=== PATIENT | female | born 1975 | race Asian ===

== ENCOUNTER 2024-03-05 13:05 | Inpatient (IN) ==
--- NOTE | 2024-03-05 13:15 | ED Triage Note ---
Date of Service March 05, 2024 Provider in Triage Author: Kashif Reno History of Present Illness This patient was briefly evaluated while in triage. An abbreviated physical exam was performed. This patient is a 48-year-old Female who presents to the ED for evaluation of altered mental status. We were advised by the front desk auxiliary that the patient passed out while checking in. The reports that she ate a jelly filled candy in her car 1 hour ago. Shortly thereafter, the patient started to get lightheadedness and dizziness. This happened approximately 1 hour prior to arrival. The is uncertain what she ate. The is concerned that she is having an allergic reaction. Physical Exam CONSTITUTIONAL: Healthy and well nourished. Patient does not verbally respond, but is initially alert when when she was shaken. HEENT: Normocephalic, atraumatic. Patient is licking her lips. MUSCULOSKELETAL: The patient is rocking her feet on the foot rests of her wheelchair. INTEGUMENTARY: No rash or other significant dermatologic conditions noted. HEMATOLOGIC: No ecchymosis or petechiae. Initial orders for labs and / or imaging were placed and patient was placed in the waiting area until a bed is available. Please see further documentation for the full ED course.
--- NOTE | 2024-03-05 13:39 | Emergency Department Note ---
Impression & Plan AMS (altered mental status), Marijuana use ED Provider Note NAME: ANGELITO JIMENES AGE: 48 SEX: F : 1975 ARRIVES VIA: Walk-In INFORMANT: The patient's significant other ED PROVIDER(S): Luis Paris DO CHIEF COMPLAINT: Syncope HPI: The patient is a 48-year-old female who presented to the emergency department for evaluation of syncope. The patient had multiple syncopal episodes. There is no fall. The states that she thought she may have had an allergic reaction. They were in the car together around lunchtime. There was a jellylike substance that the found in the car and thought that it was something for her to eat. Ever since that time the patient has not been acting appropriately. She states that she was able to talk earlier and stated to her significant other that she felt funny and felt off. There is no reported nausea or vomiting. Patient denies having any pain. ROS: See above HPI for pertinent positives & negatives. A total of 10 systems reviewed and were otherwise negative. PAST MEDICAL HISTORY: See Below PAST SURGICAL HISTORY: See Below FAMILY HISTORY: See Below SOCIAL HISTORY: See Below HOME MEDICATIONS: See Below ALLERGIES: See Below VITALS: See Below PHYSICAL EXAMINATION: GENERAL: The patient is keeping her eyes closed. She is not moving. She does not appear to be uncomfortable or in pain. EYES: The conjunctivae are clear. The pupils are dilated and reactive bilaterally. EARS, NOSE, MOUTH AND THROAT: The nose is without any evidence of any deformity. NECK: The neck is nontender and supple. RESPIRATORY: Normal respiratory effort is noted there is no evidence of wheezing rhonchi or rales CARDIOVASCULAR: Tachycardic and regular heart sounds were noted to auscultation. There is no definite murmur. GASTROINTESTINAL: The abdomen is soft. Abdomen is nontender. MUSCULOSKELETAL/EXTREMITIES: There is no evidence of gross deformity full range of motion is noted in the hips and shoulders. SKIN: There is no obvious evidence of any rash. There are no petechiae, pallor or cyanosis noted. NEUROLOGIC: Patellar reflexes are 2+ bilaterally. The patient does not answer verbal commands. When prompted by the water maintenance supervisor the patient does shake her head no and yes to some questions. MEDICAL DECISION MAKING: Patient is a 48-year-old female who presented to the emergency department for an evaluation of altered mental status. It does appear that the patient did eat something before the onset of the symptoms. Initially I was concerned this could be a conversion disorder versus some other pathology. The patient was placed into room a 1. I discussed the patient's laboratory and radiographic studies with her . At this time no definite pathologic disorder was noted on CT of the brain. Vital signs are reassuring. The patient did have marijuana in her urine drug screen. It is possible she unknowingly took an edible. [facility] They will evaluate the patient in the emergency department. She may require further observation as an inpatient to ensure that she continues to improve. Triage Nursing notes reviewed. Prior medical records reviewed Vital Signs: reviewed and remarkable for no significant abnormalities Differential diagnosis: Infection, hypoglycemia, electrolyte abnormalities, overdose, toxicologic, cardiac sources, intracerebral event, neurologic, trauma, as well as other pathologies. ER treatment provided: See below Diagnostics interpreted by me: ECG: EKG was obtained in the emergency department. My interpretation is sinus tachycardia at 142 bpm. There is no ectopy. There is no acute ST segment abnormalities noted. No previous tracing was available. Cardiac Monitoring: An order was placed for continuous cardiac monitoring. The monitor shows a rate of 96 bpm with sinus rhythm. Laboratory studies: As stated above and show below. Imaging studies: See below. Radiographic imaging was reviewed by myself Consultation(s): I discussed this case with La who [facility] Past Med/Surg History Medical History No significant past medical history Surgical History No significant past surgical history Social History Smoking Status: Never smoker marital status: Feels Safe at Home: Yes Allergies Allergies Allergy/AdvReac Type Severity Reaction Status Date / Time No Known Allergies Allergy Unverified 03/05/24 15:31 Home Meds Home Medications Medication Instructions Recorded Confirmed No Known Home Medications 03/05/24 03/05/24 Results & Data (ED) Vital Signs Vital Signs - 24 hr 03/05/24 13:06 03/05/24 13:26 03/05/24 13:47 Temperature 36.6 C Temperature Source Oral Pulse Rate 154 H 136 H Pulse Rate [Finger] 118 H Pulse Rate from SpO2 Sensor Respiratory Rate 18 20 Respiratory Effort / Characteristics Non-Labored Spontaneous Respiratory Depth Normal Respiratory Pattern Regular Blood Pressure 155/115 H Blood Pressure [Right Arm] 140/107 H Blood Pressure Mean 128 Blood Pressure Mean [Right Arm] 118 Blood Pressure Position Lying Pulse Oximetry 99 100 Oxygen Delivery Method Room Air Nasal Cannula Oxygen Flow Rate 2 Sepsis Recent Fever Within 48 Hours No Sepsis New/Unexplained Change in Mental Status Yes Sepsis Action Taken by Nursing No Action Required 03/05/24 14:54 03/05/24 15:10 03/05/24 15:10 Temperature Temperature Source Pulse Rate 92 H Pulse Rate [Finger] 103 H Pulse Rate from SpO2 Sensor 92 H Respiratory Rate 20 15 Respiratory Effort / Characteristics Respiratory Depth Respiratory Pattern Blood Pressure 121/89 Blood Pressure [Right Arm] 120/92 Blood Pressure Mean 103 Blood Pressure Mean [Right Arm] 101 Blood Pressure Position Pulse Oximetry 100 100 Oxygen Delivery Method Nasal Cannula Nasal Cannula Oxygen Flow Rate 2 2 Sepsis Recent Fever Within 48 Hours Sepsis New/Unexplained Change in Mental Status Sepsis Action Taken by Nursing 03/05/24 15:15 03/05/24 15:15 03/05/24 15:20 Temperature Temperature Source Pulse Rate 99 H Pulse Rate [Finger] Pulse Rate from SpO2 Sensor 98 H Respiratory Rate 13 Respiratory Effort / Characteristics Respiratory Depth Respiratory Pattern Blood Pressure 128/94 129/96 Blood Pressure [Right Arm] Blood Pressure Mean 101 111 Blood Pressure Mean [Right Arm] Blood Pressure Position Pulse Oximetry 100 Oxygen Delivery Method Oxygen Flow Rate 2 Sepsis Recent Fever Within 48 Hours Sepsis New/Unexplained Change in Mental Status Sepsis Action Taken by Nursing 03/05/24 15:20 03/05/24 15:25 03/05/24 15:30 Temperature Temperature Source Pulse Rate 100 H 98 H Pulse Rate [Finger] Pulse Rate from SpO2 Sensor 100 H 98 H Respiratory Rate 13 13 Respiratory Effort / Characteristics Respiratory Depth Respiratory Pattern Blood Pressure 118/85 Blood Pressure [Right Arm] Blood Pressure Mean 95 Blood Pressure Mean [Right Arm] Blood Pressure Position Pulse Oximetry 100 100 Oxygen Delivery Method Nasal Cannula Nasal Cannula Oxygen Flow Rate 2 2 Sepsis Recent Fever Within 48 Hours Sepsis New/Unexplained Change in Mental Status Sepsis Action Taken by Nursing 03/05/24 15:30 03/05/24 15:35 03/05/24 15:40 Temperature Temperature Source Pulse Rate 91 H 97 H 94 H Pulse Rate [Finger] Pulse Rate from SpO2 Sensor 91 H 97 H 94 H Respiratory Rate 17 12 12 Respiratory Effort / Characteristics Respiratory Depth Respiratory Pattern Blood Pressure Blood Pressure [Right Arm] Blood Pressure Mean Blood Pressure Mean [Right Arm] Blood Pressure Position Pulse Oximetry 100 100 100 Oxygen Delivery Method Nasal Cannula Nasal Cannula Nasal Cannula Oxygen Flow Rate 2 2 2 Sepsis Recent Fever Within 48 Hours Sepsis New/Unexplained Change in Mental Status Sepsis Action Taken by Nursing 03/05/24 15:45 03/05/24 15:45 03/05/24 15:50 Temperature Temperature Source Pulse Rate 89 98 H Pulse Rate [Finger] Pulse Rate from SpO2 Sensor 89 98 H Respiratory Rate 10 L 17 Respiratory Effort / Characteristics Respiratory Depth Respiratory Pattern Blood Pressure 113/80 Blood Pressure [Right Arm] Blood Pressure Mean 95 Blood Pressure Mean [Right Arm] Blood Pressure Position Pulse Oximetry 100 100 Oxygen Delivery Method Nasal Cannula Nasal Cannula Oxygen Flow Rate 2 2 Sepsis Recent Fever Within 48 Hours Sepsis New/Unexplained Change in Mental Status Sepsis Action Taken by Nursing 03/05/24 15:55 03/05/24 16:00 03/05/24 16:00 Temperature Temperature Source Pulse Rate 97 H 91 H Pulse Rate [Finger] Pulse Rate from SpO2 Sensor 97 H 91 H Respiratory Rate 16 21 Respiratory Effort / Characteristics Respiratory Depth Respiratory Pattern Blood Pressure 130/95 Blood Pressure [Right Arm] Blood Pressure Mean 105 Blood Pressure Mean [Right Arm] Blood Pressure Position Pulse Oximetry 100 100 Oxygen Delivery Method Nasal Cannula Nasal Cannula Oxygen Flow Rate 2 2 Sepsis Recent Fever Within 48 Hours Sepsis New/Unexplained Change in Mental Status Sepsis Action Taken by Nursing 03/05/24 16:15 03/05/24 16:15 Temperature Temperature Source Pulse Rate 96 H Pulse Rate [Finger] Pulse Rate from SpO2 Sensor 96 H Respiratory Rate 12 Respiratory Effort / Characteristics Respiratory Depth Respiratory Pattern Blood Pressure 131/97 Blood Pressure [Right Arm] Blood Pressure Mean 109 Blood Pressure Mean [Right Arm] Blood Pressure Position Pulse Oximetry 100 Oxygen Delivery Method Nasal Cannula Oxygen Flow Rate 2 Sepsis Recent Fever Within 48 Hours Sepsis New/Unexplained Change in Mental Status Sepsis Action Taken by [facility] Medications Current Medication List: was personally reviewed by me Laboratory Data Attestation: I reviewed the patient's lab results. 03/05/24 13:20 03/05/24 13:20 Lab Results 03/05/24 03/05/24 03/05/24 Range/Units 13:20 13:40 14:04 WBC 9.55 (4.8-10.8) K/ul RBC 4.63 (4.20-5.40) M/uL Hgb 14.0 (12.0-16.0) g/dl POC Hgb 14.3 (12.0-16.0) g/dl Hct 41.6 (37.0-47.0) % POC Hct 42 (37-47) % MCV 89.8 (80.0-100.0) fL MCH 30.2 (25.0-34.0) pg MCHC 33.7 (32.0-36.0) g/dL RDW Std Deviation 38.8 (36.4-46.3) fL RDW Coeff of Ayan 11.9 (11.5-14.5) % Plt Count 261 (130-400) K/uL MPV 8.5 L (9.4-12.4) fL PT 10.6 (9.0-12.0) Seconds INR 1.0 (0.9-1.1) APTT 24 (21-31) Seconds PTT Ratio 0.9 VBG pH (7.36-7.41) VBG pCO2 (38-50) mmHg VBG pO2 mmHg VBG HCO3 mmol/L VBG O2 Saturation % VBG Base Excess mEq/L POC Sodium 140 (135-144) mmol/L Sodium 137 (136-145) mmol/L POC Potassium 3.1 L (3.3-5.0) mmol/L Potassium 3.2 L (3.5-5.1) mmol/L POC Chloride 101 (101-112) mmol/L Chloride 101 (98-107) mmol/L Carbon Dioxide 23 (21-32) mmol/L POC Total CO2 25 (24-31) mmol/L Anion Gap 13 H (3-11) POC Anion Gap 18.0 (16-25) mmol/L POC BUN 20 H (7-18) mg/dl BUN 21 (6-23) mg/dl Creatinine 0.73 (0.6-1.2) mg/dl POC Creatinine 0.7 (0.6-1.3) mg/dl Est Cr Clr Drug Dosing Not Reportable Est GFR ( Amer) 113.7 ml/min Est GFR (Non-Af Amer) 98.1 ml/min BUN/Creatinine Ratio 28.8 H (10-20) Glucose 154 H (70-99(Fasting)) mg/dl POC Glucose (other) 164 H (70-99) mg/dl Calcium 9.4 (8.6-10.3) mg/dl POC Ioniz Calcium Ophelia 1.17 (1.12-1.32) mmol/l Magnesium 2.1 (1.7-2.4) mg/dl Total Bilirubin 0.6 (0.2-1.0) mg/dl AST 21 (13-39) U/L ALT 11 (7-52) U/L Alkaline Phosphatase 46 (34-104) U/L Total Creatine Kinase 85 (26-192) U/L Troponin I High Sens 3.1 (0-14) pg/ml Total Protein 7.9 (6.0-8.3) gm/dl Albumin 4.6 (3.4-5.0) gm/dl Globulin 3.3 (2.5-4.0) gm/dl Albumin/Globulin Ratio 1.4 (0.9-2) Lipase 27 (11-82) U/L TSH 0.689 (0.300-4.500) uIu/ml HCG, Qual Negative (Negative) Urine Color Yellow Urine Appearance Turbid A (Clear) Urine pH 7.5 (4.5-7.5) Ur Specific [place] 1.018 (1.000-1.030) Urine Protein Negative (Negative) Urine Glucose (UA) Negative (Negative) Urine Ketones Negative (Negative) Urine Blood Negative (Negative) Urine Nitrite Negative (Negative) Urine Bilirubin Negative (Negative) Urine Urobilinogen Negative (Negative) Ur Leukocyte Esterase Negative (Negative) Urine WBC (Auto) 0 (0-5) /hpf Urine RBC (Auto) 5-10 H (0-4) /hpf U Hyaline Cast (Auto) 0 (0-5) /lpf U Epithel Cells (Auto) 5-10 H (0-5) /lpf Urine Bacteria (Auto) Negative (Negative) Salicylates < 3.0 L (3.0-30) mg/dl Urine Opiates Screen Neg (Neg) Ur Methadone, Qual Neg (Neg) Acetaminophen < 3 L (10-30) ug/ml Urine Barbiturates Neg (Neg) Ur Phencyclidine (PCP) Neg (Neg) U Amphetamin/Meth Scrn Neg (Neg) MDMA (Ecstasy) Screen Neg (Neg) U Benzodiazepines Scrn Neg (Neg) Ur Cocaine Metabolite Neg (Neg) U Marijuana (THC) Screen Pos H (Neg) Ethyl Alcohol mg/dL (<10.0) mg/dl 03/05/24 Range/Units 14:05 WBC (4.8-10.8) K/ul RBC (4.20-5.40) M/uL Hgb (12.0-16.0) g/dl POC Hgb (12.0-16.0) g/dl Hct (37.0-47.0) % POC Hct (37-47) % MCV (80.0-100.0) fL MCH (25.0-34.0) pg MCHC (32.0-36.0) g/dL RDW Std Deviation (36.4-46.3) fL RDW Coeff of Ayan (11.5-14.5) % Plt Count (130-400) K/uL MPV (9.4-12.4) fL PT (9.0-12.0) Seconds INR (0.9-1.1) APTT (21-31) Seconds PTT Ratio VBG pH 7.35 L (7.36-7.41) VBG pCO2 52 H (38-50) mmHg VBG pO2 42 mmHg VBG HCO3 29 mmol/L VBG O2 Saturation 71.8 % VBG Base Excess 2.0 mEq/L POC Sodium (135-144) mmol/L Sodium (136-145) mmol/L POC Potassium (3.3-5.0) mmol/L Potassium (3.5-5.1) mmol/L POC Chloride (101-112) mmol/L Chloride (98-107) mmol/L Carbon Dioxide (21-32) mmol/L POC Total CO2 (24-31) mmol/L Anion Gap (3-11) POC Anion Gap (16-25) mmol/L POC BUN (7-18) mg/dl BUN (6-23) mg/dl Creatinine (0.6-1.2) mg/dl POC Creatinine (0.6-1.3) mg/dl Est Cr Clr Drug Dosing Est GFR ( Amer) ml/min Est GFR (Non-Af Amer) ml/min BUN/Creatinine Ratio (10-20) Glucose (70-99(Fasting)) mg/dl POC Glucose (other) (70-99) mg/dl Calcium (8.6-10.3) mg/dl POC Ioniz Calcium Ophelia (1.12-1.32) mmol/l Magnesium (1.7-2.4) mg/dl Total Bilirubin (0.2-1.0) mg/dl AST (13-39) U/L ALT (7-52) U/L Alkaline Phosphatase (34-104) U/L Total Creatine Kinase (26-192) U/L Troponin I High Sens (0-14) pg/ml Total Protein (6.0-8.3) gm/dl Albumin (3.4-5.0) gm/dl Globulin (2.5-4.0) gm/dl Albumin/Globulin Ratio (0.9-2) Lipase (11-82) U/L TSH (0.300-4.500) uIu/ml HCG, Qual (Negative) Urine Color Urine Appearance (Clear) Urine pH (4.5-7.5) Ur Specific [place] (1.000-1.030) Urine Protein (Negative) Urine Glucose (UA) (Negative) Urine Ketones (Negative) Urine Blood (Negative) Urine Nitrite (Negative) Urine Bilirubin (Negative) Urine Urobilinogen (Negative) Ur Leukocyte Esterase (Negative) Urine WBC (Auto) (0-5) /hpf Urine RBC (Auto) (0-4) /hpf U Hyaline Cast (Auto) (0-5) /lpf U Epithel Cells (Auto) (0-5) /lpf Urine Bacteria (Auto) (Negative) Salicylates (3.0-30) mg/dl Urine Opiates Screen (Neg) Ur Methadone, Qual (Neg) Acetaminophen (10-30) ug/ml Urine Barbiturates (Neg) Ur Phencyclidine (PCP) (Neg) U Amphetamin/Meth Scrn (Neg) MDMA (Ecstasy) Screen (Neg) U Benzodiazepines Scrn (Neg) Ur Cocaine Metabolite (Neg) U Marijuana (THC) Screen (Neg) Ethyl Alcohol mg/dL < 10.0 (<10.0) mg/dl Imaging Data Attestation: I personally reviewed and interpreted this imaging study as follows: My Impression: CT of the brain was obtained in the emergency department. My interpretation is no intracranial hemorrhage or mass effect, final report below. The chest x-ray was obtained in the emergency department. My interpretation is no free air or definite full tray, final report below. Radiologist's Impression: Chest X-Ray 03/05/24 13:21 XR chest 1V portable HISTORY: 48 years-old Female AMS acute shortness of breath COMPARISON: None TECHNIQUE: AP view of the chest FINDINGS: Cardiomediastinal and hilar silhouettes are within normal limits. No pneumothorax, pleural effusion or airspace consolidation. Bones appear grossly intact. IMPRESSION: No acute process. ACT 112: Negative or not required by law. The above report was generated using voice recognition software. It may contain grammatical, syntax or spelling errors. Electronically signed by: Sedrick Johnson M.D. 03/05/2024 2:[address] 03/05/24 13:21 CT SCAN OF THE BRAIN WITHOUT IV CONTRAST CLINICAL HISTORY: Change in mental status. COMPARISON STUDY: No priors. TECHNIQUE: Unenhanced axial CT scan of the brain is performed from the vertex to the skull base. A dose lowering technique was utilized adhering to the principles of ALARA. CT DOSE: 547.75 mGy.cm FINDINGS: Brain parenchyma: The brain parenchyma is normal in appearance. There is no hemorrhage, mass effect, or evidence of acute territorial ischemia by CT criteria. Lindsey-white matter differentiation is preserved. No extra-axial fluid collection is seen. Ventricles, sulci, cisterns: Normal in configuration. Intracranial vasculature: There is moderate atherosclerotic calcification of the cavernous carotid arteries. Calvarium: Unremarkable. Sinuses and mastoids: The visualized paranasal sinuses are clear. The mastoid air cells are well pneumatized. Orbits: The bony orbits are grossly intact. IMPRESSION: No acute intracranial abnormality. ACT 112: Negative or not required by law. Electronically signed by: Henri Calhoun M.D. 03/05/2024 1:45 PM Discharge Plan Visit Data Chief Complaint: Altered Mental Status Stated Complaint: SYNCOPE, TROUBLE BREATHING ED Provider: Luis Paris Discharge Problem: AMS (altered mental status), Marijuana use Patient Disposition: Being Evaluated by Hospitalist Forms Stand Alone Forms: My [facility] Prescriptions Prescriptions: No Action No Known Home Medications Referrals Referrals: PCP,NO [Primary Care Provider] - Discharge Problem: AMS (altered mental status) Qualifiers: Altered mental status type: unspecified Qualified Code(s): R41.82 - Altered mental status, unspecified
[2024-03-05 13:42] LABS: Hematocrit (blood only) 41.6 % (37.0-47.0); Mean Corpuscular Hemoglobin 30.2 pg (25.0-34.0); Mean Corpuscular Hgb Conc 33.7 g/dL (32.0-36.0); Mean Corpuscular Volume 89.8 fL (80.0-100.0); Mean Platelet Volume 8.5 fL (9.4-12.4); Platelet Count 261 K/uL (130-400); RDW Coefficient of Variation 11.9 % (11.5-14.5); RDW Standard Deviation 38.8 fL (36.4-46.3); Red Blood Count 4.63 M/uL (4.20-5.40); White Blood Count 9.55 K/ul (4.8-10.8)
--- NOTE | 2024-03-05 13:46 | CT Scan Report ---
CT SCAN OF THE BRAIN WITHOUT IV CONTRAST CLINICAL HISTORY: Change in mental status. COMPARISON STUDY: No priors. TECHNIQUE: Unenhanced axial CT scan of the brain is performed from the vertex to the skull base. A d ose lowering technique was utilized adhering to the principles of ALARA. CT DOSE: 547.75 mGy.cm FINDINGS: Brain parenchyma: The brain parenchyma is normal in appearance. There is no hemorrhage, mass effect, or evidence of acute territorial ischemia by CT criteria. Lindsey-white matter differentiation is preser radha. No extra-axial fluid collection is seen. Ventricles, sulci, cisterns: Normal in configuration. Intracranial vasculature: There is moderate atherosclerotic calcification of the cavernous carotid ar teries. Calvarium: Unremarkable. Sinuses and mastoids: The visualized paranasal sinuses are clear. The mastoid air cells are well pneu matized. Orbits: The bony orbits are grossly intact. IMPRESSION: No acute intracranial abnormality. ACT 112: Negative or not required by law. Electronically signed by: Henri Calhoun M.D. 03/05/2024 1:45 PM
[2024-03-05 13:54] LABS: iSTAT Creatinine 0.7 mg/dl (0.6-1.3); iSTAT Hemoglobin 14.3 g/dl (12.0-16.0); iSTAT Ionized Calcium 1.17 mmol/l (1.12-1.32); iSTAT Potassium 3.1 mmol/L (3.3-5.0)
--- NOTE | 2024-03-05 14:03 | XRay Report ---
XR chest 1V portable HISTORY: 48 years-old Female AMS acute shortness of breath COMPARISON: None TECHNIQUE: AP view of the chest FINDINGS: Cardiomediastinal and hilar silhouettes are within normal limits. No pneumothorax, pleural effusion o r airspace consolidation. Bones appear grossly intact. IMPRESSION: No acute process. ACT 112: Negative or not required by law. The above report was generated using voice recognition software. It may contain grammatical, syntax o r spelling errors. Electronically signed by: Sedrick Johnson M.D. 03/05/2024 2:02 PM
[2024-03-05 14:14] LABS: Acetaminophen < 3 ug/ml (10-30); Salicylate < 3.0 mg/dl (3.0-30)
[2024-03-05 14:22] LABS: HCO3 VBG 29 mmol/L; Oxygen Saturation VBG 71.8 %; PCO2 VBG 52 mmHg (38-50); PO2 VBG 42 mmHg; pH VBG 7.35 (7.36-7.41)
[2024-03-05 15:04] LABS: Partial Thromboplastin Ratio 0.9; Partial Thromboplastin Time 24 Seconds (21-31); Prothrombin Time 10.6 Seconds (9.0-12.0)
[2024-03-05 15:19] LABS: Pregnancy Test, Serum Negative (Negative)
[2024-03-05 15:41] LABS: Appearance Urine Turbid (Clear); Bacteria Urine Automated Negative (Negative); Bilirubin Urine Negative (Negative); Blood Urine Negative (Negative); Cast Urine Automated 0 /lpf (0-5); Color Urine Yellow; Glucose Urine UA Negative (Negative); Ketones Urine Negative (Negative); Leukocyte Esterase Urine Negative (Negative); Nitrite Urine Negative (Negative); Protein Urine Negative (Negative); Specific Gravity Urine 1.018 (1.000-1.030); Urobilinogen Urine Negative (Negative); WBC Urine Automated 0 /hpf (0-5); pH Urine 7.5 (4.5-7.5)
[2024-03-05 15:43] LABS: Thyroid Stimulating Hormone 0.689 uIu/ml (0.300-4.500); Troponin I High Sensitivity 3.1 pg/ml (0-14)
[2024-03-05 15:48] LABS: BUN Creatinine Ratio 28.8 (10-20); Blood Urea Nitrogen 21 mg/dl (6-23); Calcium 9.4 mg/dl (8.6-10.3); Carbon Dioxide 23 mmol/L (21-32); Chloride 101 mmol/L (98-107); Est GFR (African American) 113.7 ml/min; Est GFR (Non-African American) 98.1 ml/min; Glucose 154 mg/dl (70-99(Fasting)); Potassium 3.2 mmol/L (3.5-5.1); Sodium 137 mmol/L (136-145)
[2024-03-05 15:50] LABS: Alanine Aminotransferase 11 U/L (7-52); Albumin Globulin Ratio 1.4 (0.9-2); Albumin Level 4.6 gm/dl (3.4-5.0); Alkaline Phosphatase 46 U/L (34-104); Anion Gap 13 (3-11); Bilirubin,Total 0.6 mg/dl (0.2-1.0); Creatine Kinase 85 U/L (26-192); Globulin 3.3 gm/dl (2.5-4.0); Lipase 27 U/L (11-82); Magnesium 2.1 mg/dl (1.7-2.4); Total Protein 7.9 gm/dl (6.0-8.3)
[2024-03-05 15:54] LABS: Aspartate Aminotransferase 21 U/L (13-39)
[2024-03-05 16:13] LABS: Amphetamines+Metham, Urine Neg (Neg); Barbiturates, Urine Neg (Neg); Benzodiazepine, Urine Neg (Neg); Cocaine, Urine Neg (Neg); MDMA (Ecstacy), Urine Neg (Neg); Marijuana, Urine Pos (Neg); Methadone, Urine Neg (Neg); Opiate, Urine Neg (Neg); Phencyclidine, Urine Neg (Neg)
[2024-03-05 18:25] LABS: ALC (manual) 6.02 K/uL (1.2-3.4); ANC (manual) 3.06 K/uL (1.4-6.5); Large Granular Lymph # (manua 3.53 K/uL; Large Granular Lymph % (manual) 37 %; Lymphocytes # (manual) 2.48 K/uL (1.2-3.4); Lymphocytes % (manual) 26 %; Monocytes # (manual) 0.48 K/uL (0.11-0.59); Monocytes % (manual) 5 %; Neutrophils # (manual) 3.06 K/uL (1.40-6.50); Neutrophils % (manual) 32 %
[2024-03-05] MEDS: LACTATED RINGER'S 1,000 ML IV STA (22:55)
[2024-03-05] MEDS: POTASSIUM CHLORIDE / WTR 10 MEQ/100 ML PLCT IV SCH (22:55)
--- NOTE | 2024-03-05 22:58 | Emergency Department Note ---
ED Visit Note Patient was signed out to me by Dr. Paris. Plan was for admission to the hospitalist service however admission orders had not yet been placed. I was asked by case management to assess the patient and discussed the case with the hospitalist for [facility]. On my assessment the patient appears to be encephalopathic, she is responsive to verbal stimuli but appears lethargic, she is hemodynamically stable on nasal cannula oxygen. Patient's at the bedside shows me the substance that she ingested, it appears to be a delta 8 gummy wrapper. Patient's urine drug screen was positive for marijuana. I suspect she is suffering side effects from this ingestion. I discussed the patient's presentation with the [facility] hospitalist, Dr. Culver, and he is in agreement to admit the patient. We did attempt an ambulatory trial with the bedside RN and the patient failed. She remains somewhat drowsy appearing and I feel that she is appropriate for overnight observation. Patient was placed for admission in stable condition .
[2024-03-05 23:05] LABS: Base Excess VBG 0.5 mEq/L; HCO3 VBG 29 mmol/L; Oxygen Saturation VBG 72.4 %; PCO2 VBG 61 mmHg (38-50); PO2 VBG 43 mmHg; pH VBG 7.28 (7.36-7.41)
--- NOTE | 2024-03-05 23:36 | History & Physical Report ---
Date of Service March 05, 2024 Assessment & Plan (1) Acute encephalopathy: Plan: Multifactorial: Accidental marijuana candy intake Respiratory acidosis/hypercapnic respiratory failure secondary to above Rule out seizures given syncopal event followed by leg shaking episode witnessed by family. Syncope likely secondary to orthostasis given hypotension documented at the ER Rule out arrhythmia, structural cardiac pathology, seizures as differentials Hypothyroidism, euthyroid as of today's TSH Hyperglycemia rule out DM PCU given hypotension IVF BiPAP Follow ABG EEG, Brain MRI, Neurology consult re: possible seizures TTE for additional syncopal workup Check hemoglobin A1c requested to bring patient's home medication list in a.m. for reconciliation. DVT prophylaxis. Lovenox subcu Full code Patient requesting updates providers. Mr. Daron Pham, contact #[phone]. Total critical care time was 35 minutes. Text document was generated using [employer] voice recognition software. It may contain grammatical or spelling errors. Kindly contact undersigned for clarification of any documentation item in question. ADDENDUM : 03/06/2024, 0050 AM [id number] ABG on BiPAP pH 7.44, pCO2 36.7, pO2 119, O2 sats 99% History of Present Illness Chief Complaint: Dizziness, syncope, leg shaking, confusion Primary Care Provider: NO PCP History obtained from patient, family, and records. Limited history from patient secondary to obtunded state. Medical history significant for hypothyroidism. Patient is a [place] citizen who recently relocated to [place] to accompany her for a scholarship work at the [employer]. Patient complained of dizziness described as lightheadedness to today. Admits to consumption of jelly candy found in the car, unknown source as per . Patient also complained of headache symptoms. No chest pain, no SOB. Witnessed syncopal event at home followed by bilateral leg shaking lasting for less than a minute as per . No tongue biting or urinary incontinence witnessed as per . Patient brought to the ER for evaluation. Lowest SBP of 90s documented at the ER. Medical History as above Surgical History : None Family History : DM Personal/Social history : Non-smoker, no EtOH intake, housewife Allergies Allergy/AdvReac Type Severity Reaction Status Date / Time No Known Allergies Allergy Unverified 03/05/24 15:31 Home Medications Medication Instructions Recorded Confirmed Type No Known Home Medications 03/05/24 03/05/24 History Past Med/Surg History Medical History No significant past medical history Surgical History No significant past surgical history Social History Smoking Status: Never smoker Hx Alcohol Use: No Hx Substance Use: No marital status: Feels Safe at Home: Yes Review of Systems Review of Systems: Could not be reliably obtained secondary to obtunded state Physical Exam Physical Exam: GENERAL: Obtunded, no respiratory distress SKIN: Normal color, warm HEENT: Orin palpebral conjunctivae, no ptosis, dry buccal mucosa NECK : Supple, no tenderness CHEST : CTA, no tenderness HEART : RRR, no obvious murmurs ABDOMEN: Some distention, nontender EXTREMITIES : No LE swelling/tenderness, no other conspicuous deformities noted NEUROLOGIC : Obtunded, no facial asymmetry, no other gross focality Results & Data Results & Data Vital Signs (Past 12 Hours) Vital Signs Temp Pulse Pulse Resp BP BP Pulse Ox 03/05/24 21:19 68 03/05/24 19:36 68 18 96/68 L 97 03/05/24 18:30 81 18 97 03/05/24 18:00 90 17 97 03/05/24 17:30 86 13 97 03/05/24 17:22 90 03/05/24 17:00 91 H 15 97 03/05/24 16:45 85 11 L 100 03/05/24 16:45 110/81 03/05/24 16:30 118/88 03/05/24 16:30 91 H 14 100 03/05/24 16:15 96 H 12 100 03/05/24 16:15 131/97 03/05/24 16:00 130/95 03/05/24 16:00 91 H 21 100 03/05/24 15:55 97 H 16 100 03/05/24 15:50 98 H 17 100 03/05/24 15:45 113/80 03/05/24 15:45 89 10 L 100 03/05/24 15:40 94 H 12 100 03/05/24 15:35 97 H 12 100 03/05/24 15:30 91 H 17 100 03/05/24 15:30 118/85 03/05/24 15:25 98 H 13 100 03/05/24 15:20 100 H 13 100 03/05/24 15:20 129/96 03/05/24 15:15 128/94 03/05/24 15:15 99 H 13 100 03/05/24 15:10 121/89 03/05/24 15:10 92 H 15 100 03/05/24 14:54 103 H 20 120/92 100 03/05/24 13:47 118 H 20 140/107 H 100 03/05/24 13:26 136 H 03/05/24 13:06 36.6 C 154 H 18 155/115 H 99 O2 Del Method O2 Flow Rate 03/05/24 21:19 03/05/24 19:36 Room Air 03/05/24 18:30 03/05/24 18:00 03/05/24 17:30 03/05/24 17:22 03/05/24 17:00 03/05/24 16:45 Nasal Cannula 2 03/05/24 16:45 03/05/24 16:30 03/05/24 16:30 Nasal Cannula 2 03/05/24 16:15 Nasal Cannula 2 03/05/24 16:15 03/05/24 16:00 03/05/24 16:00 Nasal Cannula 2 03/05/24 15:55 Nasal Cannula 2 03/05/24 15:50 Nasal Cannula 2 03/05/24 15:45 03/05/24 15:45 Nasal Cannula 2 03/05/24 15:40 Nasal Cannula 2 03/05/24 15:35 Nasal Cannula 2 03/05/24 15:30 Nasal Cannula 2 03/05/24 15:30 03/05/24 15:25 Nasal Cannula 2 03/05/24 15:20 Nasal Cannula 2 03/05/24 15:20 03/05/24 15:15 03/05/24 15:15 2 03/05/24 15:10 03/05/24 15:10 Nasal Cannula 2 03/05/24 14:54 Nasal Cannula 2 03/05/24 13:47 Nasal Cannula 2 03/05/24 13:26 03/05/24 13:06 Room Air Laboratory Results Laboratory Results WBC 9.55 K/ul (4.8-10.8) 03/05/24 13:20 RBC 4.63 M/uL (4.20-5.40) 03/05/24 13:20 Hgb 14.0 g/dl (12.0-16.0) 03/05/24 13:20 POC Hgb 14.3 g/dl (12.0-16.0) 03/05/24 13:40 Hct 41.6 % (37.0-47.0) 03/05/24 13:20 POC Hct 42 % (37-47) 03/05/24 13:40 MCV 89.8 fL (80.0-100.0) 03/05/24 13:20 MCH 30.2 pg (25.0-34.0) 03/05/24 13:20 MCHC 33.7 g/dL (32.0-36.0) 03/05/24 13:20 RDW Std Deviation 38.8 fL (36.4-46.3) 03/05/24 13:20 RDW Coeff of Ayan 11.9 % (11.5-14.5) 03/05/24 13:20 Plt Count 261 K/uL (130-400) 03/05/24 13:20 MPV 8.5 fL (9.4-12.4) L 03/05/24 13:20 Neutrophils % (Manual) 32 % 03/05/24 13:20 Lymphocytes % (Manual) 26 % 03/05/24 13:20 Monocytes % (Manual) 5 % 03/05/24 13:20 Neutrophils # (Manual) 3.06 K/uL (1.40-6.50) 03/05/24 13:20 Total Absolute Neuts 3.06 K/uL (1.4-6.5) 03/05/24 13:20 Lymphocytes # (Manual) 2.48 K/uL (1.2-3.4) 03/05/24 13:20 Total Abs Lymphocytes 6.02 K/uL (1.2-3.4) H 03/05/24 13:20 Monocytes # (Manual) 0.48 K/uL (0.11-0.59) 03/05/24 13:20 Large Granular Lymphs 37 % 03/05/24 13:20 # Lrg Granular Lymphs 3.53 K/uL 03/05/24 13:20 PT 10.6 Seconds (9.0-12.0) 03/05/24 13:20 INR 1.0 (0.9-1.1) 03/05/24 13:20 APTT 24 Seconds (21-31) 03/05/24 13:20 PTT Ratio 0.9 03/05/24 13:20 VBG pH 7.28 (7.36-7.41) L 03/05/24 22:49 VBG pCO2 61 mmHg (38-50) H 03/05/24 22:49 VBG pO2 43 mmHg 03/05/24 22:49 VBG HCO3 29 mmol/L 03/05/24 22:49 VBG O2 Saturation 72.4 % 03/05/24 22:49 VBG Base Excess 0.5 mEq/L 03/05/24 22:49 POC Sodium 140 mmol/L (135-144) 03/05/24 13:40 Sodium 137 mmol/L (136-145) 03/05/24 13:20 POC Potassium 3.1 mmol/L (3.3-5.0) L 03/05/24 13:40 Potassium 3.2 mmol/L (3.5-5.1) L 03/05/24 13:20 POC Chloride 101 mmol/L (101-112) 03/05/24 13:40 Chloride 101 mmol/L (98-107) 03/05/24 13:20 Carbon Dioxide 23 mmol/L (21-32) 03/05/24 13:20 POC Total CO2 25 mmol/L (24-31) 03/05/24 13:40 Anion Gap 13 (3-11) H 03/05/24 13:20 POC Anion Gap 18.0 mmol/L (16-25) 03/05/24 13:40 POC BUN 20 mg/dl (7-18) H 03/05/24 13:40 BUN 21 mg/dl (6-23) 03/05/24 13:20 Creatinine 0.73 mg/dl (0.6-1.2) 03/05/24 13:20 POC Creatinine 0.7 mg/dl (0.6-1.3) 03/05/24 13:40 Est Cr Clr Drug Dosing Not Reportable 03/05/24 13:20 Est GFR ( Amer) 113.7 ml/min 03/05/24 13:20 Est GFR (Non-Af Amer) 98.1 ml/min 03/05/24 13:20 BUN/Creatinine Ratio 28.8 (10-20) H 03/05/24 13:20 Glucose 154 mg/dl (70-99(Fasting)) H 03/05/24 13:20 POC Glucose (other) 164 mg/dl (70-99) H 03/05/24 13:40 Lactate 3.0 mmol/L (0.4-2.0) H* 03/05/24 22:49 Calcium 9.4 mg/dl (8.6-10.3) 03/05/24 13:20 POC Ioniz Calcium Ophelia 1.17 mmol/l (1.12-1.32) 03/05/24 13:40 Magnesium 2.1 mg/dl (1.7-2.4) 03/05/24 13:20 Total Bilirubin 0.6 mg/dl (0.2-1.0) 03/05/24 13:20 AST 21 U/L (13-39) 03/05/24 13:20 ALT 11 U/L (7-52) 03/05/24 13:20 Alkaline Phosphatase 46 U/L (34-104) 03/05/24 13:20 Ammonia 11.0 umol/L (18-72) L 03/05/24 22:49 Total Creatine Kinase 85 U/L (26-192) 03/05/24 13:20 Troponin I High Sens 3.1 pg/ml (0-14) 03/05/24 13:20 Total Protein 7.9 gm/dl (6.0-8.3) 03/05/24 13:20 Albumin 4.6 gm/dl (3.4-5.0) 03/05/24 13:20 Globulin 3.3 gm/dl (2.5-4.0) 03/05/24 13:20 Albumin/Globulin Ratio 1.4 (0.9-2) 03/05/24 13:20 Lipase 27 U/L (11-82) 03/05/24 13:20 TSH 0.689 uIu/ml (0.300-4.500) 03/05/24 13:20 HCG, Qual Negative (Negative) 03/05/24 13:20 Urine Color Yellow 03/05/24 14:04 Urine Appearance Turbid (Clear) A 03/05/24 14:04 Urine pH 7.5 (4.5-7.5) 03/05/24 14:04 Ur Specific [place]on 1.018 (1.000-1.030) 03/05/24 14:04 Urine Protein Negative (Negative) 03/05/24 14:04 Urine Glucose (UA) Negative (Negative) 03/05/24 14:04 Urine Ketones Negative (Negative) 03/05/24 14:04 Urine Blood Negative (Negative) 03/05/24 14:04 Urine Nitrite Negative (Negative) 03/05/24 14:04 Urine Bilirubin Negative (Negative) 03/05/24 14:04 Urine Urobilinogen Negative (Negative) 03/05/24 14:04 Ur Leukocyte Esterase Negative (Negative) 03/05/24 14:04 Urine WBC (Auto) 0 /hpf (0-5) 03/05/24 14:04 Urine RBC (Auto) 5-10 /hpf (0-4) H 03/05/24 14:04 U Hyaline Cast (Auto) 0 /lpf (0-5) 03/05/24 14:04 U Epithel Cells (Auto) 5-10 /lpf (0-5) H 03/05/24 14:04 Urine Bacteria (Auto) Negative (Negative) 03/05/24 14:04 Salicylates < 3.0 mg/dl (3.0-30) L 03/05/24 13:20 Urine Opiates Screen Neg (Neg) 03/05/24 14:04 Ur Methadone, Qual Neg (Neg) 03/05/24 14:04 Acetaminophen < 3 ug/ml (10-30) L 03/05/24 13:20 Urine Barbiturates Neg (Neg) 03/05/24 14:04 Ur Phencyclidine (PCP) Neg (Neg) 03/05/24 14:04 U Amphetamin/Meth Scrn Neg (Neg) 03/05/24 14:04 MDMA (Ecstasy) Screen Neg (Neg) 03/05/24 14:04 U Benzodiazepines Scrn Neg (Neg) 03/05/24 14:04 Ur Cocaine Metabolite Neg (Neg) 03/05/24 14:04 U Marijuana (THC) Screen Pos (Neg) H 03/05/24 14:04 Ethyl Alcohol mg/dL < 10.0 mg/dl (<10.0) 03/05/24 14:05 Impressions Chest X-Ray 03/05/24 13:21 XR chest 1V portable HISTORY: 48 years-old Female AMS acute shortness of breath COMPARISON: None TECHNIQUE: AP view of the chest FINDINGS: Cardiomediastinal and hilar silhouettes are within normal limits. No pneumothorax, pleural effusion or airspace consolidation. Bones appear grossly intact. IMPRESSION: No acute process. ACT 112: Negative or not required by law. The above report was generated using voice recognition software. It may contain grammatical, syntax or spelling errors. Electronically signed by: Sedrick Johnson M.D. 03/05/2024 2:[address] 03/05/24 13:21 CT SCAN OF THE BRAIN WITHOUT IV CONTRAST CLINICAL HISTORY: Change in mental status. COMPARISON STUDY: No priors. TECHNIQUE: Unenhanced axial CT scan of the brain is performed from the vertex to the skull base. A dose lowering technique was utilized adhering to the principles of ALARA. CT DOSE: 547.75 mGy.cm FINDINGS: Brain parenchyma: The brain parenchyma is normal in appearance. There is no hemorrhage, mass effect, or evidence of acute territorial ischemia by CT criteria. Lindsey-white matter differentiation is preserved. No extra-axial fluid collection is seen. Ventricles, sulci, cisterns: Normal in configuration. Intracranial vasculature: There is moderate atherosclerotic calcification of the cavernous carotid arteries. Calvarium: Unremarkable. Sinuses and mastoids: The visualized paranasal sinuses are clear. The mastoid air cells are well pneumatized. Orbits: The bony orbits are grossly intact. IMPRESSION: No acute intracranial abnormality. ACT 112: Negative or not required by law. Electronically signed by: Henri Calhoun M.D. 03/05/2024 1:45 PM Diagnostic Findings EKG as per my interpretation : Rate 140, sinus tachycardia, RAD, incomplete RBBB, no ischemia
[2024-03-05] MEDS ORDERED: PROMETHAZINE HCL 6.25 MG in SODIUM CHLORIDE 0.9% 50 ML IV PRN (23:40)
[2024-03-05] MEDS ORDERED: ACETAMINOPHEN 1,000 MG/100 ML VIAL IV PRN (23:40)
[2024-03-06] MEDS: LACTATED RINGER'S 1,000 ML IV ONE (00:48)
[2024-03-06] MEDS ORDERED: LORazepam 1 MG in SYRINGE 0.5 ML IV PRN (01:09)
[2024-03-06 01:39] LABS: Basophils # (auto) 0.02 K/uL (0.00-0.20); Basophils % (auto) 0.3 %; Eosinophils # (auto) 0.01 K/uL (0.00-0.50); Eosinophils % (auto) 0.1 %; Hematocrit (blood only) 37.9 % (37.0-47.0); Hemoglobin 12.3 g/dl (12.0-16.0); Immature Granulocytes # (auto) 0.02 K/uL (0.01-0.20); Immature Granulocytes % (auto) 0.3 %; Lymphocytes # (auto) 0.92 K/uL (1.20-3.40); Lymphocytes % (auto) 13.1 %; Mean Corpuscular Hemoglobin 30.1 pg (25.0-34.0); Mean Corpuscular Hgb Conc 32.5 g/dL (32.0-36.0); Mean Corpuscular Volume 92.7 fL (80.0-100.0); Mean Platelet Volume 8.4 fL (9.4-12.4); Monocytes # (auto) 0.37 K/uL (0.11-0.59); Monocytes % (auto) 5.3 %; Neutrophils # (auto) 5.66 K/uL (1.40-6.50); Neutrophils % (auto) 80.9 %; Platelet Count 182 K/uL (130-400); RDW Coefficient of Variation 11.7 % (11.5-14.5); RDW Standard Deviation 40.1 fL (36.4-46.3); Red Blood Count 4.09 M/uL (4.20-5.40)
[2024-03-06 01:58] LABS: Anion Gap 5 (3-11); BUN Creatinine Ratio 33.3 (10-20); Blood Urea Nitrogen 21 mg/dl (6-23); Calcium 8.9 mg/dl (8.6-10.3); Carbon Dioxide 26 mmol/L (21-32); Chloride 103 mmol/L (98-107); Est GFR (African American) 123.8 ml/min; Est GFR (Non-African American) 106.8 ml/min; Glucose 106 mg/dl (70-99(Fasting)); Potassium 4.1 mmol/L (3.5-5.1); Sodium 134 mmol/L (136-145)
[2024-03-06] MEDS ORDERED: ACETAMINOPHEN 325 MG TAB PO PRN (02:18)
[2024-03-06 07:33] LABS: Estimated Average Glucose 103 mg/dl; Hemoglobin A1C 5.2 % (4.5-5.6)
[2024-03-06 09:31] LABS: iSTAT Arterial Blood Gas HCO3 25 meg/L (19-24); iSTAT Arterial Blood Gas pCO2 37 mmHg (35-46); iSTAT Arterial Blood Gas pH 7.44 (7.35-7.45); iSTAT Arterial Blood Gas pO2 119 mmHg (80-95); iSTAT Carbon Dioxide 26 mmol/L (24-31); iSTAT Hematocrit 38 % (37-47); iSTAT Hemoglobin 12.9 g/dl (12.0-16.0); iSTAT Sodium 133 mmol/L (135-144)
--- NOTE | 2024-03-06 09:38 | XRay Report ---
BONY ORBITS 3 VIEWS CLINICAL HISTORY: MRI clearance. FINDINGS: 3 views of the bony orbits are obtained. No prior studies are available for comparison at t he time of dictation. There is no radiodense/metallic foreign body seen in the region of the bony orb its. The bony orbits are intact as imaged. The visualized paranasal sinuses and the mastoid air cells appear clear. The imaged calvarium appears intact. IMPRESSION: There is no radiodense/metallic foreign body seen in the region of the bony orbits. ACT 112: Negative or not required by law. Electronically signed by: Henri Calhoun M.D. 03/06/2024 9:36 AM
[2024-03-06] MEDS: ENOXAPARIN INJ 30 MG/0.3 ML SYR SQ SCH (09:44)
[2024-03-06 10:28] LABS: HCO3 VBG 29 mmol/L; Oxygen Saturation VBG < 60.0 %; PCO2 VBG 57 mmHg (38-50); PO2 VBG 39 mmHg; pH VBG 7.32 (7.36-7.41)
--- NOTE | 2024-03-06 12:53 | Hospitalist Progress Note ---
Date of Service March 06, 2024 Assessment & Plan (1) Acute encephalopathy: Plan: Toxic metabolic encephalopathy due to accidental marijuana ingestion and hypercarbic respiratory failure Multifactorial: Accidental marijuana candy intake Respiratory acidosis/hypercapnic respiratory failure secondary to above Rule out seizures given syncopal event followed by leg shaking episode witnessed by family. Syncope likely secondary to orthostasis given hypotension documented at the ER Rule out arrhythmia, structural cardiac pathology, seizures as differentials 4/5 Mental status much improved Encephalopathy, likely secondary to ingestion of THC Neurowork-up: Brain MRI: No acute process EEG: This is an abnormal awake and drowsy routine EEG due to generalized background slowing suggestive of non specific encephalopathy. No epileptiform activity is seen. Neurology service consult Cardiac workup: No arrhythmia per telemetry so far Echocardiogram: Unrevealing Continue to monitor Check orthostatic vitals Continue IV fluids Hypothyroidism, euthyroid as of today's TSH DVT prophylaxis. Lovenox subcu Full code plan of care discussed with patient in detail and at length all questions answered She is understanding, agreeable, comfortable with the plan of care Per RN, patient's was requesting for update Confirmed with patient, she is giving permission to share all information with her Tried to call patient's over the phone, no answer Will attempt update later on Admission and Anticipated Discharge Date Admission Date: March 05, 2024 Subjective Follow-up for syncope, etc. Seen resting in bed, awake, alert, appears tired Oriented x 3 Answering questions appropriately Recalls driving home from [employer], upon arriving home, ingested a jelly candy that she got inside the car, Was able to go inside the house, make fruit juice for her and herself, then started to feel dizzy, with palpitations, and muscle stiffness She requested her to take her to the ER, remembers being en route to the hospital but after that does not recall subsequent events On exam, states she still feels somewhat dizzy, has some mild frontal headache No blurring of vision, nausea or vomiting, chest pain, shortness of breath, abdominal pain, nausea Appetite is poor No fevers or chills No other new symptoms Review of Systems Review of Systems: all noted and negative except for above Physical Exam Physical Exam: General- oriented x 3, not in distress, speaks in sentences with no effort or accessory muscle use Eyes- anicteric Neck- no JVD Lungs- clear breath sounds bilaterally, no crackles or wheezes Heart- normal rate, regular rhythm; no murmurs Abdomen- normal bowel sounds, nondistended, soft, no tenderness Extremities- no pretibial edema, no calf tenderness Neuro- alert, oriented x 3; no gross focal neurologic deficits Skin- warm & dry Results & Data Results & Data Vital Signs (Past 12 Hours) Vital Signs Temp Pulse Pulse Resp BP Pulse Ox Pulse Ox 03/06/24 08:00 36.9 C 57 L 20 112/67 98 03/06/24 08:00 98 03/06/24 07:34 56 L 03/06/24 05:30 58 L 20 111/76 99 03/06/24 05:15 03/06/24 03:55 57 L 18 99 03/06/24 03:00 62 18 128/85 100 O2 Del Method O2 Del Method FiO2 03/06/24 08:00 Room Air 03/06/24 08:00 Room Air 03/06/24 07:34 03/06/24 05:30 BiPAP 03/06/24 05:15 BiPAP 03/06/24 03:55 21 03/06/24 03:00 BiPAP all noted and reviewed including below
[2024-03-06] MEDS: GADOBUTROL 65ML VIAL IV ONE (13:39)
--- NOTE | 2024-03-06 14:31 | Magnetic Resonance Report ---
MR brain seizure wo/w con HISTORY: 48 years-old Female sz Acutely altered mental status with headache. COMPARISON: Head CT 03/05/2024. TECHNIQUE: Multiplanar and multisequence MRI of the brain was obtained with and without IV contrast. FINDINGS: No restricted diffusion. Midline structures are unremarkable. There is no acute intracranial hemorrha ge, midline shift, abnormal extra-axial collection, hydrocephalus or intra-axial mass. No pathologic blooming artifact. The volume and signal characteristics of the brain parenchyma are within normal li mits. Cerebral venous sinuses and major arterial flow voids are patent. Skull, orbits and soft tissues are unremarkable. Mastoid air cells and paranasal sinuses are generally clear. The mesial temporal lobes are within normal limits. No evidence of mesial temporal sclerosis, nair matter heterotopia, cortical dysplasia or acute seizure focus. No abnormal enhancement. IMPRESSION: 1. Unremarkable MRI of the brain. 2. No abnormal enhancement. ACT 112: Negative or not required by law. The above report was generated using voice recognition software. It may contain grammatical, syntax o r spelling errors. Dictated: 03/06/2024 2:08 PM Transcribed: 03/06/2024 2:17 PM Chavo [id number] [email or web address] Electronically signed by: Sedrick Johnson M.D. 03/06/2024 2:30 PM
[2024-03-06] MEDS: D5W AND NSS 1,000 ML IV SCH (15:32)
--- NOTE | 2024-03-06 16:50 | Electroencephalogram ---
EEG Procedure Note Date of Service March 06, 2024 Start / End Times Start Time: 08:45 End Time: 09:[address] Matthew Culver History A 48 year old female with possible seizure / encephalopathy after accidental overdose. EEG performed for evaluation of epileptiform activity. Home Medication List Medication Instructions Recorded Confirmed Type No Known Home Medications 03/05/24 03/05/24 History Inpatient Medication List Enoxaparin Sodium (Enoxaparin Inj 30 Mg/0.3 Ml Syr) 30 mg SQ QAM NOE Stop: 04/05/24 08:59 Last Admin: 03/06/24 09:44 Dose: 30 mg Documented By: LIVE Dextrose/Sodium Chloride (D5w And Nss) 1,000 mls @ 80 mls/hr IV .[id number] NOE Stop: 04/05/24 14:59 Last Admin: 03/06/24 15:32 Dose: 80 mls/hr Documented By: DMNithin Discontinued Medications Gadobutrol (Gadobutrol 65ml Vial) 5 ml IV ONCE ONE Stop: 03/06/24 13:40 Last Admin: 03/06/24 13:39 Dose: 5 ml Documented By: SUSHILA Potassium Chloride (K Wagner / Wtr) 10 meq in 100 mls @ 100 mls/hr IV Q1H NOE Stop: 03/06/24 01:44 Last Infusion: 03/06/24 04:09 Dose: Infused Documented By: Admin: 03/06/24 02:50 Dose: 100 mls/hr Documented By: Infusion: 03/06/24 02:50 Dose: Infused Documented By: Admin: 03/06/24 02:03 Dose: 100 mls/hr Documented By: Infusion: 03/06/24 02:02 Dose: Infused Documented By: Admin: 03/06/24 00:48 Dose: 100 mls/hr Documented By: Infusion: 03/06/24 00:07 Dose: Infused Documented By: Admin: 03/05/24 22:55 Dose: 100 mls/hr Documented By: KATERYNA Lactated Ringer's (Lr) 1,000 mls @ 500 mls/hr IV .Q2H STA Stop: 03/05/24 23:35 Last Infusion: 03/06/24 00:47 Dose: Infused Documented By: Admin: 03/05/24 22:55 Dose: 100 mls/hr Documented By: KATERYNA Lactated Ringer's (Lr) 1,000 mls @ 100 mls/hr IV .Q10H ONE Stop: 03/06/24 10:29 Last Infusion: 03/06/24 08:27 Dose: Infused Documented By: Infusion: 03/06/24 02:03 Dose: 100 mls/hr Documented By: Admin: 03/06/24 00:48 Dose: 250 mls/hr Documented By: YISEL Description This is a 21 electrode EEG with a single channel dedicated to limited EKG. The electrodes were placed in accordance with the International 10-20 system. REPORT: At the onset of the EEG the patient is awake. The background is symmetric but disorganized consisting of 6-7 theta activity with some intermixed delta activity. Photic stimulation does not induce any abnormalities. No stage II sleep transients are seen. Interpretation IMPRESSION: This is an abnormal awake and drowsy routine EEG due to generalized background slowing suggestive of non specific encephalopathy. No epileptiform activity is seen.
--- NOTE | 2024-03-06 19:30 | Neurology Consultation ---
Date of Consultation March 06, 2024 Assessment & Plan (1) Acute encephalopathy: Plan 48 y/o female that presented with encephalopathy and syncope in the setting of marijuana ingestion, hypercarbic respiratory failure, and hypotension. Neurology has been consulted for possible seizure. Given clinical history of event, suspect syncopal event. History is less suggestive of seizure and even if isolated seizure in this setting with no epileptiform discharges on EEG and unremarkable MRI brain, would not initiate medications. Clinically, pt appears to have returned to baseline. Recommend syncope work-up per primary. 1. Syncope work-up per primary 2. No driving until deemed acceptable per PCP or cardiology 3. Neurology outpatient follow-up Telehealth Consultation Telehealth Information Telehealth Information: I performed this visit using a real-time telehealth connection between my location and the patients location ([facility]). After connecting through interactive tele-video, patient was identified by name and date of and/or wristband check.Patient (or authorized healthcare district representative) was informed that this was a telemedicine visit and it was being conducted confidentially over secure lines. My office door was closed and no one else was present in the room with me.Patient (or authorized healthcare district representative) provided consent to proceed with the visit, expressed an understanding of privacy and security of the telemedicine visit, and gave permission to have a hospital district representative in the room in order to assist with the visit and to conduct portions of the visit, as needed. I informed the patient (or authorized healthcare district representative) that I reviewed their record and presented the opportunity for them to ask any questions regarding the visit today. The patient agreed to participate. History of Present Illness Reason for Consultation: possible seizure Requesting Physician: Matthew Culver MD Attending Physician: Lio Bejarano MD History of Present Illness 48 y/o female that presented following a syncopal episode. On after grocery shopping, she was on the way home and saw a gummy in the car that she thought her child had left. She ate it and her thought felt weird. She tried to drink juice but it tasted different. She also states that her mouth felt very dry and her hands and feet felt shakey. She also started feeling dull frontal headache. Her reported that in the car, she was hallucinating saying that she sees GOD. She was also shivering in the car. She was brought to the ED by her . Her states that he was helping her to walk into the hospital and then she fainted into the chair. He states that after he came in, he felt her stiffen and then she seemed to slump over. He denies any movements that occurred at this time. They brought a wheelchair and she was placed in a chair. She did not have any incontinence or tongue biting. The last thing she remember is she was feeling dizzy as she got out of the car to go inside. This was the only episode of syncope that he observed. She has never had any loss of consciousness previously. Allergies Allergy/AdvReac Type Severity Reaction Status Date / Time No Known Allergies Allergy Unverified 03/05/24 15:31 Home Medications Medication Instructions Recorded Confirmed Type No Known Home Medications 03/05/24 03/05/24 History Patient History Medical History No significant past medical history Surgical History No significant past surgical history Social History Smoking Status: Never smoker Hx Alcohol Use: No Hx Substance Use: No marital status: Feels Safe at Home: Yes Assistive Devices: None Review of Systems Negative except as listed in HPI Physical Exam AAO X 3 No aphasia or dysarthria. VFF grossly intact EOMI, nystgamus Facial sensations intact No facial asymmetry Tongue protrudes midline Motor: Moves all four extremities antigravity, no drift. No involuntary movements Sensation: Intact to light touch throughout Cerebellar: FTN intact Results & Data Vital Signs (Past 12 Hours) Vital Signs Temp Pulse Pulse Pulse Resp BP Pulse Ox 03/06/24 19:18 62 16 98/66 L 98 03/06/24 15:30 65 15 113/76 98 03/06/24 08:00 36.9 C 57 L 20 112/67 98 03/06/24 08:00 03/06/24 07:34 56 L Pulse Ox O2 Del Method O2 Del Method 03/06/24 19:18 Room Air 03/06/24 15:30 Room Air 03/06/24 08:00 Room Air 03/06/24 08:00 98 Room Air 04/05/24 07:34 Laboratory Results WBC 7.00, HGB 12.3, HCT 37.9, Plts 182, Na 134, Potassium 4.1, Carbon Dioxide 26, BUN 21, Creatinine 0.63, Glucose 106, A1C 5.2, lactate 1.5, ammonia 11, Urine negative nitrite negative leukocyte esterase, uds positive marijuana, THS 0.689 Diagnostic Findings CTH: No acute intracranial abnormality. MRI brain: 1. Unremarkable MRI of the brain. 2. No abnormal enhancement. TTE: EF 55-60%, normal sized left atrium, no ASD but resolution does not allow for assessment of PFO EEG: This is an abnormal awake and drowsy routine EEG due to generalized background slowing suggestive of non specific encephalopathy. No epileptiform activity is seen.
--- NOTE | 2024-03-07 07:02 | Electrocardiogram Report ---
Test Reason : Blood Pressure : / mmHG Vent. Rate : 142 BPM Atrial Rate : 142 BPM P-R Int : 144 ms QRS Dur : 096 ms QT Int : 352 ms P-R-T Axes : 091 106 073 degrees QTc Int : 541 ms Sinus tachycardia Possible Left atrial enlargement Rightward axis Incomplete right bundle branch block Cannot rule out Anterior infarct , age undetermined Abnormal ECG No previous ECGs available Confirmed by Carlos Mason ([id number]) on 03/07/2024 7:01:44 AM Referred By: Confirmed By:Carlos Mason
[2024-03-07 07:48] LABS: Basophils # (auto) 0.02 K/uL (0.00-0.20); Basophils % (auto) 0.4 %; Eosinophils # (auto) 0.04 K/uL (0.00-0.50); Eosinophils % (auto) 0.9 %; Hematocrit (blood only) 36.7 % (37.0-47.0); Immature Granulocytes # (auto) 0.01 K/uL (0.01-0.20); Immature Granulocytes % (auto) 0.2 %; Lymphocytes # (auto) 1.13 K/uL (1.20-3.40); Lymphocytes % (auto) 25.1 %; Mean Corpuscular Hemoglobin 30.2 pg (25.0-34.0); Mean Corpuscular Hgb Conc 32.7 g/dL (32.0-36.0); Mean Corpuscular Volume 92.4 fL (80.0-100.0); Mean Platelet Volume 8.7 fL (9.4-12.4); Monocytes # (auto) 0.26 K/uL (0.11-0.59); Monocytes % (auto) 5.8 %; Neutrophils # (auto) 3.05 K/uL (1.40-6.50); Neutrophils % (auto) 67.6 %; Platelet Count 164 K/uL (130-400); RDW Coefficient of Variation 11.8 % (11.5-14.5); RDW Standard Deviation 39.8 fL (36.4-46.3); Red Blood Count 3.97 M/uL (4.20-5.40); White Blood Count 4.51 K/ul (4.8-10.8)
[2024-03-07] MEDS ORDERED: Nursing to Pharmacy Communication SCH (08:00)
[2024-03-07 08:39] LABS: Albumin Globulin Ratio 1.5 (0.9-2); Albumin Level 3.7 gm/dl (3.4-5.0); BUN Creatinine Ratio 18.3 (10-20); Bilirubin,Total 0.6 mg/dl (0.2-1.0); Calcium 8.5 mg/dl (8.6-10.3); Creatinine Clr Calc Pharmacy 77.5 ml/min; Est GFR (African American) 117.6 ml/min; Est GFR (Non-African American) 101.4 ml/min; Globulin 2.5 gm/dl (2.5-4.0); Magnesium 2.1 mg/dl (1.7-2.4); Phosphorus 3.2 mg/dl (2.5-4.9); Potassium 3.5 mmol/L (3.5-5.1); Total Protein 6.2 gm/dl (6.0-8.3)
--- NOTE | 2024-03-07 11:54 | Electrocardiogram Report ---
Test Reason : Blood Pressure : / mmHG Vent. Rate : 060 BPM Atrial Rate : 060 BPM P-R Int : 158 ms QRS Dur : 106 ms QT Int : 416 ms P-R-T Axes : 083 099 068 degrees QTc Int : 416 ms Normal sinus rhythm Rightward axis Abnormal ECG When compared with ECG of 05-MAR-2024 13:15, Vent. rate has decreased BY 82 BPM Incomplete right bundle branch block is no longer Present Minimal criteria for Anterior infarct are no longer Present Confirmed by Shmuel Celaya ([id number]) on 03/07/2024 11:54:13 AM Referred By: REFERRED SELF Confirmed By:Shmuel Celaya
--- NOTE | 2024-03-07 13:42 | Hospitalist Progress Note ---
Date of Service March 07, 2024 Assessment & Plan (1) Acute encephalopathy: Plan: Syncope, Toxic metabolic encephalopathy due to accidental marijuana ingestion and hypercarbic respiratory failure Multifactorial: Accidental marijuana candy intake Respiratory acidosis/hypercapnic respiratory failure secondary to above Rule out seizures given syncopal event followed by leg shaking episode witnessed by family. Syncope likely secondary to orthostasis given hypotension documented at the ER Rule out arrhythmia, structural cardiac pathology, seizures as differentials / Mental status much improved Encephalopathy, likely secondary to ingestion of THC Neuro work-up: Brain MRI: No acute process EEG: This is an abnormal awake and drowsy routine EEG due to generalized background slowing suggestive of non specific encephalopathy. No epileptiform activity is seen. Neurology service consulted: Suspect syncopal event, less suggestive of seizure Cardiac workup: No arrhythmia per telemetry Echocardiogram: Left ventricular motion is normal, no regional wall motion abnormalities, left ventricular systolic function is normal, left ventricular ejection fraction 55 to 60%, no significant valvular disease orthostatic vitals: Negative Patient back to her baseline mental status Advised not to drive until reevaluated by primary care physician Spike report will be submitted Follow-up with PCP in 1 week Will have [facility] established patient call patient on Saturday for appointment Hypothyroidism, euthyroid plan of care discussed with patient in detail and at length all questions answered She is understanding, agreeable, comfortable with the plan of care Admission and Anticipated Discharge Date Admission Date: March 05, 2024 Subjective ff up for accidental ingestion of cannabis product, etc. Seen resting in bed, sitting up, awake and alert Oriented x 3, answers all questions appropriately States she feels much better today overall Denies headache, dizziness, nausea, problems with vision, chest pain, shortness of breath, palpitations, abdominal pain, nausea vomiting Ambulating in the room with no problems States she is ready for discharge today Review of Systems Review of Systems: all noted and negative except for above Physical Exam Physical Exam: General- oriented x 3, not in distress, speaks in sentences with no effort or accessory muscle use Eyes- anicteric Neck- no JVD Lungs- clear breath sounds bilaterally, no rales/wheezes Heart- normal rate, regular rhythm; no murmurs Abdomen- normal bowel sounds, nondistended, soft, nontender Extremities- no pretibial edema, no calf tenderness Neuro- alert, oriented x 3; no gross focal neurologic deficits Skin- warm & dry Results & Data Results & Data Vital Signs (Past 12 Hours) Vital Signs Temp Pulse Pulse Pulse Resp BP BP 03/07/24 13:25 37.0 C 62 60 18 115/73 106/68 03/07/24 11:29 37.0 C 62 18 115/73 03/07/24 07:59 03/07/24 07:39 36.6 C 57 L 18 120/79 03/07/24 07:00 58 L 03/07/24 02:42 36.5 C 51 L 16 118/76 Pulse Ox O2 Del Method 03/07/24 13:25 97 03/07/24 11:29 97 Room Air 03/07/24 07:59 Room Air 03/07/24 07:39 98 Room Air 03/07/24 07:00 03/07/24 02:42 98 Room Air all noted and reviewed including below
--- NOTE | 2024-03-07 13:44 | Discharge Summary ---
Discharge Summary Date of Service March 07, 2024 Notes For Next Care Provider Medication Changes From Visit None Admission HPI Per Admitting Provider History obtained from patient, family, and records. Limited history from patient secondary to obtunded state. Medical history significant for hypothyroidism. Patient is a [place] citizen who recently relocated to [place] to accompany her for a scholarship work at the [employer]. Patient complained of dizziness described as lightheadedness to today. Admits to consumption of jelly candy found in the car, unknown source as per . Patient also complained of headache symptoms. No chest pain, no SOB. Witnessed syncopal event at home followed by bilateral leg shaking lasting for less than a minute as per . No tongue biting or urinary incontinence witnessed as per . Patient brought to the ER for evaluation. Lowest SBP of 90s documented at the ER. Medical History as above Surgical History : None Family History : DM Personal/Social history : Non-smoker, no EtOH intake, housewife Admission Exam Per Admitting Provider GENERAL: Obtunded, no respiratory distress SKIN: Normal color, warm HEENT: [place] palpebral conjunctivae, no ptosis, dry buccal mucosa NECK : Supple, no tenderness CHEST : CTA, no tenderness HEART : RRR, no obvious murmurs ABDOMEN: Some distention, nontender EXTREMITIES : No LE swelling/tenderness, no other conspicuous deformities noted NEUROLOGIC : Obtunded, no facial asymmetry, no other gross focality Principal Dx & Hospital Course #1 = Principal Diagnosis (1) Acute encephalopathy: Syncope, Toxic metabolic encephalopathy due to accidental marijuana ingestion and hypercarbic respiratory failure Multifactorial: Accidental marijuana candy intake Respiratory acidosis/hypercapnic respiratory failure secondary to above Rule out seizures given syncopal event followed by leg shaking episode witnessed by family. Syncope likely secondary to orthostasis given hypotension documented at the ER Rule out arrhythmia, structural cardiac pathology, seizures as differentials /6 Mental status much improved Encephalopathy, likely secondary to ingestion of THC Neuro work-up: Brain MRI: No acute process EEG: This is an abnormal awake and drowsy routine EEG due to generalized background slowing suggestive of non specific encephalopathy. No epileptiform activity is seen. Neurology service consulted: Suspect syncopal event, less suggestive of seizure Cardiac workup: No arrhythmia per telemetry Echocardiogram: Left ventricular motion is normal, no regional wall motion abnormalities, left ventricular systolic function is normal, left ventricular ejection fraction 55 to 60%, no significant valvular disease orthostatic vitals: Negative Patient back to her baseline mental status Advised not to drive until reevaluated by primary care physician Spike report will be submitted Follow-up with PCP in 1 week Will have [facility] established patient call patient on Saturday for appointment Hypothyroidism, euthyroid plan of care discussed with patient in detail and at length all questions answered She is understanding, agreeable, comfortable with the plan of care Discharge Exam General- oriented x 3, not in distress, speaks in sentences with no effort or accessory muscle use Eyes- anicteric Neck- no JVD Lungs- clear breath sounds bilaterally, no rales/wheezes Heart- normal rate, regular rhythm; no murmurs Abdomen- normal bowel sounds, nondistended, soft, nontender Extremities- no pretibial edema, no calf tenderness Neuro- alert, oriented x 3; no gross focal neurologic deficits Skin- warm & dry Updated Medication List Medication Instructions Recorded Confirmed Type No Known Home Medications 03/05/24 03/05/24 History Hospital Stay Data Consultations 03/05/24 16:25 ED Decision to Admit Stat 03/05/24 21:32 ED Decision to Admit Stat 03/06/24 01:09 Consult Neurology Routine Diagnostic Imagining Performed Laboratory Results WBC 4.51 K/ul (4.8-10.8) L 03/07/24 07:05 RBC 3.97 M/uL (4.20-5.40) L 03/07/24 07:05 Hgb 12.0 g/dl (12.0-16.0) 03/07/24 07:05 POC Hgb 12.9 g/dl (12.0-16.0) 03/06/24 00:50 Hct 36.7 % (37.0-47.0) L 03/07/24 07:05 POC Hct 38 % (37-47) 03/06/24 00:50 MCV 92.4 fL (80.0-100.0) 03/07/24 07:05 MCH 30.2 pg (25.0-34.0) 03/07/24 07:05 MCHC 32.7 g/dL (32.0-36.0) 03/07/24 07:05 RDW Std Deviation 39.8 fL (36.4-46.3) 03/07/24 07:05 RDW Coeff of Ayan 11.8 % (11.5-14.5) 03/07/24 07:05 Plt Count 164 K/uL (130-400) 03/07/24 07:05 MPV 8.7 fL (9.4-12.4) L 03/07/24 07:05 Immature Gran % (Auto) 0.2 % 03/07/24 07:05 Neut % (Auto) 67.6 % 03/07/24 07:05 Lymph % (Auto) 25.1 % 03/07/24 07:05 Crowley % (Auto) 5.8 % 03/07/24 07:05 Eos % (Auto) 0.9 % 03/07/24 07:05 Baso % (Auto) 0.4 % 03/07/24 07:05 Neut # (Auto) 3.05 K/uL (1.40-6.50) 03/07/24 07:05 Lymph # (Auto) 1.13 K/uL (1.20-3.40) L 03/07/24 07:05 Crowley # (Auto) 0.26 K/uL (0.11-0.59) 03/07/24 07:05 Eos # (Auto) 0.04 K/uL (0.00-0.50) 03/07/24 07:05 Baso # (Auto) 0.02 K/uL (0.00-0.20) 03/07/24 07:05 Immature Gran # (Auto) 0.01 K/uL (0.01-0.20) 03/07/24 07:05 Neutrophils % (Manual) 32 % 03/05/24 13:20 Lymphocytes % (Manual) 26 % 03/05/24 13:20 Monocytes % (Manual) 5 % 03/05/24 13:20 Neutrophils # (Manual) 3.06 K/uL (1.40-6.50) 03/05/24 13:20 Total Absolute Neuts 3.06 K/uL (1.4-6.5) 03/05/24 13:20 Lymphocytes # (Manual) 2.48 K/uL (1.2-3.4) 03/05/24 13:20 Total Abs Lymphocytes 6.02 K/uL (1.2-3.4) H 03/05/24 13:20 Monocytes # (Manual) 0.48 K/uL (0.11-0.59) 03/05/24 13:20 Large Granular Lymphs 37 % 03/05/24 13:20 # Lrg Granular Lymphs 3.53 K/uL 03/05/24 13:20 PT 10.6 Seconds (9.0-12.0) 03/05/24 13:20 INR 1.0 (0.9-1.1) 03/05/24 13:20 APTT 24 Seconds (21-31) 03/05/24 13:20 PTT Ratio 0.9 03/05/24 13:20 POC pH 7.44 (7.35-7.45) 03/06/24 00:50 POC pCO2 37 mmHg (35-46) 03/06/24 00:50 POC pO2 119 mmHg (80-95) H 03/06/24 00:50 POC HCO3 25 charles/L (19-24) H 03/06/24 00:50 POC Total CO2 26 mmol/L (24-31) 03/06/24 00:50 POC Base Excess 1.0 charles/L (-9-1.8) 03/06/24 00:50 POC ABG O2 Sat 99.0 % (90-95) H 03/06/24 00:50 VBG pH 7.32 (7.36-7.41) L 03/06/24 10:17 VBG pCO2 57 mmHg (38-50) H 03/06/24 10:17 VBG pO2 39 mmHg 03/06/24 10:17 VBG HCO3 29 mmol/L 03/06/24 10:17 VBG O2 Saturation < 60.0 % 03/06/24 10:17 VBG Base Excess 2.0 mEq/L 03/06/24 10:17 POC Sodium 133 mmol/L (135-144) L 03/06/24 00:50 Sodium 142 mmol/L (136-145) 03/07/24 07:05 POC Potassium 4.0 mmol/L (3.3-5.0) 03/06/24 00:50 Potassium 3.5 mmol/L (3.5-5.1) 03/07/24 07:05 POC Chloride 101 mmol/L (101-112) 03/05/24 13:40 Chloride 110 mmol/L (98-107) H 03/07/24 07:05 Carbon Dioxide 29 mmol/L (21-32) 03/07/24 07:05 POC Total CO2 25 mmol/L (24-31) 03/05/24 13:40 Anion Gap 3 (3-11) 03/07/24 07:05 POC Anion Gap 18.0 mmol/L (16-25) 03/05/24 13:40 POC BUN 20 mg/dl (7-18) H 03/05/24 13:40 BUN 13 mg/dl (6-23) 03/07/24 07:05 Creatinine 0.71 mg/dl (0.6-1.2) 03/07/24 07:05 POC Creatinine 0.7 mg/dl (0.6-1.3) 03/05/24 13:40 Est Cr Clr Drug Dosing 77.5 ml/min 03/07/24 07:05 Est GFR ( Amer) 117.6 ml/min 03/07/24 07:05 Est GFR (Non-Af Amer) 101.4 ml/min 03/07/24 07:05 BUN/Creatinine Ratio 18.3 (10-20) 03/07/24 07:05 Glucose 93 mg/dl (70-99(Fasting)) 03/07/24 07:05 POC Glucose (other) 164 mg/dl (70-99) H 03/05/24 13:40 Estimat Average Glucose 103 mg/dl 03/06/24 01:27 Hemoglobin A1c 5.2 % (4.5-5.6) 03/06/24 01:27 Lactate 1.5 mmol/L (0.4-2.0) 03/06/24 01:27 Calcium 8.5 mg/dl (8.6-10.3) L 03/07/24 07:05 POC Ioniz Calcium Ophelia 1.17 mmol/l (1.12-1.32) 03/05/24 13:40 Phosphorus 3.2 mg/dl (2.5-4.9) 03/07/24 07:05 Magnesium 2.1 mg/dl (1.7-2.4) 03/07/24 07:05 Total Bilirubin 0.6 mg/dl (0.2-1.0) 03/07/24 07:05 AST 53 U/L (13-39) H 03/07/24 07:05 ALT 53 U/L (7-52) H 03/07/24 07:05 Alkaline Phosphatase 41 U/L (34-104) 03/07/24 07:05 Ammonia 11.0 umol/L (18-72) L 03/05/24 22:49 Total Creatine Kinase 85 U/L (26-192) 03/05/24 13:20 Troponin I High Sens 3.1 pg/ml (0-14) 03/05/24 13:20 Total Protein 6.2 gm/dl (6.0-8.3) D 03/07/24 07:05 Albumin 3.7 gm/dl (3.4-5.0) 03/07/24 07:05 Globulin 2.5 gm/dl (2.5-4.0) 03/07/24 07:05 Albumin/Globulin Ratio 1.5 (0.9-2) 03/07/24 07:05 Lipase 27 U/L (11-82) 03/05/24 13:20 TSH 0.689 uIu/ml (0.300-4.500) 03/05/24 13:20 HCG, Qual Negative (Negative) 03/05/24 13:20 Urine Color Yellow 03/05/24 14:04 Urine Appearance Turbid (Clear) A 03/05/24 14:04 Urine pH 7.5 (4.5-7.5) 03/05/24 14:04 Ur Specific [place] 1.018 (1.000-1.030) 03/05/24 14:04 Urine Protein Negative (Negative) 03/05/24 14:04 Urine Glucose (UA) Negative (Negative) 03/05/24 14:04 Urine Ketones Negative (Negative) 03/05/24 14:04 Urine Blood Negative (Negative) 03/05/24 14:04 Urine Nitrite Negative (Negative) 03/05/24 14:04 Urine Bilirubin Negative (Negative) 03/05/24 14:04 Urine Urobilinogen Negative (Negative) 03/05/24 14:04 Ur Leukocyte Esterase Negative (Negative) 03/05/24 14:04 Urine WBC (Auto) 0 /hpf (0-5) 03/05/24 14:04 Urine RBC (Auto) 5-10 /hpf (0-4) H 03/05/24 14:04 U Hyaline Cast (Auto) 0 /lpf (0-5) 03/05/24 14:04 U Epithel Cells (Auto) 5-10 /lpf (0-5) H 03/05/24 14:04 Urine Bacteria (Auto) Negative (Negative) 03/05/24 14:04 Salicylates < 3.0 mg/dl (3.0-30) L 03/05/24 13:20 Urine Opiates Screen Neg (Neg) 03/05/24 14:04 Ur Methadone, Qual Neg (Neg) 03/05/24 14:04 Acetaminophen < 3 ug/ml (10-30) L 03/05/24 13:20 Urine Barbiturates Neg (Neg) 03/05/24 14:04 Ur Phencyclidine (PCP) Neg (Neg) 03/05/24 14:04 U Amphetamin/Meth Scrn Neg (Neg) 03/05/24 14:04 MDMA (Ecstasy) Screen Neg (Neg) 03/05/24 14:04 U Benzodiazepines Scrn Neg (Neg) 03/05/24 14:04 Ur Cocaine Metabolite Neg (Neg) 03/05/24 14:04 U Marijuana (THC) Screen Pos (Neg) H 03/05/24 14:04 Ethyl Alcohol mg/dL < 10.0 mg/dl (<10.0) 03/05/24 14:05 Impressions Chest X-Ray 03/05/24 13:21 XR chest 1V portable HISTORY: 48 years-old Female AMS acute shortness of breath COMPARISON: None TECHNIQUE: AP view of the chest FINDINGS: Cardiomediastinal and hilar silhouettes are within normal limits. No pneumothorax, pleural effusion or airspace consolidation. Bones appear grossly intact. IMPRESSION: No acute process. ACT 112: Negative or not required by law. The above report was generated using voice recognition software. It may contain grammatical, syntax or spelling errors. Electronically signed by: Sedrick Johnson M.D. 03/05/2024 2:[address] 03/05/24 13:21 CT SCAN OF THE BRAIN WITHOUT IV CONTRAST CLINICAL HISTORY: Change in mental status. COMPARISON STUDY: No priors. TECHNIQUE: Unenhanced axial CT scan of the brain is performed from the vertex to the skull base. A dose lowering technique was utilized adhering to the principles of ALARA. CT DOSE: 547.75 mGy.cm FINDINGS: Brain parenchyma: The brain parenchyma is normal in appearance. There is no hemorrhage, mass effect, or evidence of acute territorial ischemia by CT criteria. Lindsey-white matter differentiation is preserved. No extra-axial fluid collection is seen. Ventricles, sulci, cisterns: Normal in configuration. Intracranial vasculature: There is moderate atherosclerotic calcification of the cavernous carotid arteries. Calvarium: Unremarkable. Sinuses and mastoids: The visualized paranasal sinuses are clear. The mastoid air cells are well pneumatized. Orbits: The bony orbits are grossly intact. IMPRESSION: No acute intracranial abnormality. ACT 112: Negative or not required by law. Electronically signed by: Henri Calhoun M.D. 03/05/2024 1:45 PM Brain MRI 03/06/24 01:09 MR brain seizure wo/w con HISTORY: 48 years-old Female sz Acutely altered mental status with headache. COMPARISON: Head CT 03/05/2024. TECHNIQUE: Multiplanar and multisequence MRI of the brain was obtained with and without IV contrast. FINDINGS: No restricted diffusion. Midline structures are unremarkable. There is no acute intracranial hemorrhage, midline shift, abnormal extra-axial collection, hydrocephalus or intra-axial mass. No pathologic blooming artifact. The volume and signal characteristics of the brain parenchyma are within normal limits. Cerebral venous sinuses and major arterial flow voids are patent. Skull, orbits and soft tissues are unremarkable. Mastoid air cells and paranasal sinuses are generally clear. The mesial temporal lobes are within normal limits. No evidence of mesial temporal sclerosis, lindsey matter heterotopia, cortical dysplasia or acute seizure focus. No abnormal enhancement. IMPRESSION: 1. Unremarkable MRI of the brain. 2. No abnormal enhancement. ACT 112: Negative or not required by law. The above report was generated using voice recognition software. It may contain grammatical, syntax or spelling errors. Dictated: 03/06/2024 2:08 PM Transcribed: 03/06/2024 2:17 PM Chavo [id number] [email or web address] Electronically signed by: Sedrick Johnson M.D. 03/06/2024 2:30 PM Orbit X-Ray 03/06/24 08:57 BONY ORBITS 3 VIEWS CLINICAL HISTORY: MRI clearance. FINDINGS: 3 views of the bony orbits are obtained. No prior studies are available for comparison at the time of dictation. There is no radiodense/metallic foreign body seen in the region of the bony orbits. The bony orbits are intact as imaged. The visualized paranasal sinuses and the mastoid air cells appear clear. The imaged calvarium appears intact. IMPRESSION: There is no radiodense/metallic foreign body seen in the region of the bony orbits. ACT 112: Negative or not required by law. Electronically signed by: Henri Calhoun M.D. 03/06/2024 9:36 AM Pending Results Patient Have Any Pending Studies at Discharge: No Discharge Instructions Given to Patient (Per Discharging Provider) Continue to drink plenty of fluids. Resume your usual thyroid medication. PLEASE CALL YOUR PRIMARY CARE PHYSICIAN OR RETURN TO THE ER IF WITH WORSENING OF SYMPTOMS, INCLUDING Dizziness, passing out, headache, nausea or vomiting, abdominal pain, chest pain , shortness of breath, etc. FOLLOW UP WITH PRIMARY CARE PHYSICIAN IN 1 WEEK. THE [facility] WILL BE CALLING YOU ON SATURDAY FOR THE APPOINTMENT SCHEDULE. NO DRIVING UNTIL REEVALUATED AND ALLOWED BY PRIMARY CARE PHYSICIAN. Total Time Total Time Spent Total Time Spent (In Minutes): >30 minutes
[2024-03-08 08:48] LABS: Marijuana Quant, GCMS Urine 503 ng/mL (<5)
== END 2024-03-07 14:18 | disposition home or self-care (01) | DRG 917 ==
LOC: ED 13:05 → EDINP 23:37 → 2S 03-06 00:21